=== PATIENT | female | born 1960 | race Caucasian/White ===

== ENCOUNTER → 2021-01-17 | Outpatient (CLI) | payer BC ==
--- NOTE | 2021-01-17 17:38 | RAD ---
XR KNEE 3 VIEWS_RT Clinical indications: Reason: right knee pain, no known injury/ Spl. Instructions: / History: Findings: No acute fracture or dislocation or osteolytic process is evident. There is mild degenerat elif joint space narrowing of the medial and lateral tibial femoral joint compartments without spurrin g. The patellofemoral joint compartment is unremarkable. IMPRESSION: No acute osseous abnormality is evident. Electronically signed by: Joshua Rihcardson MD (01/17/2021 5:36 PM) [id number]
== END ==
LOC: RAD 15:38
PROVIDERS: ATTEND Physician Assistant
DX: M25.861 Other specified joint disorders, right knee (principal)
CPT/HCPCS: 73562

== ENCOUNTER → 2021-06-03 | Outpatient (CLI) | payer BC ==
--- NOTE | 2021-06-03 17:27 | RAD ---
EXAMINATION: XR RIGHT HIP (WITH OR WITHOUT PELVIS) 2 VIEWS CLINICAL HISTORY: Right hip pain, no known injury. TECHNIQUE: XR RIGHT HIP (WITH OR WITHOUT PELVIS) 2 VIEWS Number of Images/Views: 4 COMPARISON: None FINDINGS: Joint space alignment maintained in the right hip. Left hip unremarkable on limited evaluation. Pubic symphysis and SI joints maintained. Partially visualized lumbar degenerative changes. No acute fract ure. Surgical clips projected over the right hemipelvis. IMPRESSION: No acute osseous abnormality. Electronically signed by: Milo Ballard DO (06/03/2021 5:24 PM) [id number]
== END ==
LOC: RAD 15:20
PROVIDERS: ATTEND Physician Assistant
DX: M25.551 Pain in right hip (principal)
CPT/HCPCS: 73502